=== PATIENT | female | born 1960 | race African-American/Black ===

== ENCOUNTER 2017-09-30 13:19 | Emergency (ER) | payer OTHER | END 2017-09-30 14:45 | disposition home or self-care (01) | LOC: FTE 13:19 | DX: K64.9 Unspecified hemorrhoids (principal); I10 Essential (primary) hypertension; E11.9 Type 2 diabetes mellitus without complications; Z76.0 Encounter for issue of repeat prescription; Z79.84 Long term (current) use of oral hypoglycemic drugs | CPT/HCPCS: 99283 ==

== ENCOUNTER 2018-04-22 04:04 | Emergency (ER) | payer MEDICARE, BC ==
[2018-04-22] MEDS: FAMOTIDINE 20 MG TAB PO (04:27)
[2018-04-22] MEDS: predniSONE 20 MG TAB PO (04:27)
== END 2018-04-22 04:59 | disposition home or self-care (01) ==
LOC: E/R 04:04
DX: T78.1XXA Other adverse food reactions, not elsewhere classified, initial encounter (principal); R40.2142 Coma scale, eyes open, spontaneous, at arrival to emergency department; R40.2252 Coma scale, best verbal response, oriented, at arrival to emergency department; R40.2362 Coma scale, best motor response, obeys commands, at arrival to emergency department; E11.9 Type 2 diabetes mellitus without complications; L29.9 Pruritus, unspecified; Z79.84 Long term (current) use of oral hypoglycemic drugs
CPT/HCPCS: 99283